=== PATIENT | female | born 1960 ===

== ENCOUNTER 2025-08-15 11:19 | Outpatient (OUT) | payer MEDICARE, SELFPAY ==
--- OUTSIDE RECORDS SUMMARY | 2022-07-26 09:15 | XMS_ITS | Continuity of Care Document ---
Author Organization [facility] Address [address] [place] [address] Phone Care Team Providers Care Alterations Tailor Name Role Phone Lewis Person Unavailable Unavailable Procedures Procedure Date Admin Moderna Bvalent Booster 17 And Old er Moderna COVID Vaccine Admin Dose 2 Moderna COVID-19 Vaccine Moderna COVID Vaccine Admin Dose 1 Moderna COVID-19 Vaccine Advance Directives Directive Yes / No Effective Date File Name No Information Encounters Encounter Description Practice Location Reason(s) For Visit Diagnoses Date Provider Providers Copied on Encounter [facility], [address] [place] [address], [id number], tel:[phone] COVID ECHD No Information Za Rogers. [address], [place], [id number], [place]. tel:[phone] [facility], [address] [place] [address], [id number], [place] tel:[phone] COVID ECHD No Information Za Rogers. [address], [place], [id number], [place]. tel:[phone] [facility], [address] [place] [address], [id number], [place] tel:[phone] COVID ECHD No Information Za Rogers. [address] [place] [address], [id number], [place]. tel:[phone] Family History Family Member Type Diagnosis Age At Onset No Information Immunizations Vaccine Date Status Comments Cov-19 administered Source: New Imm unization Record Kimo COVID administered Source: New Im munization Record Kimo COVID administered Source: New Im munization Record Payers Payer name Insurance type Covered democrat ID Authoriza timakeda(s) [place] [employer] [id number] [place] [employer] [id number] [place] [employer] [id number] [place] [employer] [id number] Social History Type Description Quantity Date Captured Comments Alcohol Use Details Unknown Caffeine Use Details Unknown Tobacco Use Status No Information Smoking Status No Information Sex Female Sexual Orientation Straight or heterosexual Gender Identity Male Chief Complaint And Reason For Visit No Information Reason For Referral Reason For Referral No Information Plan Of Treatment Date Type Action Status Goal FOBT. Due on due Goal PRAPARE ASSESSMENT. Due on S due Goal Influenza vaccine. Due on due Goal Lipid panel. Due on due Goal Zoster vaccine (). Due on due Goal Tdap. Due on due Goal Depression screening. Due on due Goal Colonoscopy. Due on due Goal Mammogram. Due on due History Of Present Illness Encounter Date Complaint History Of Prese nt Illness No Information Functional Status Date Functional Assessmen t No Information Instructions Date Instruction Additional Infor mation No Information Assessments Type Assessment Date No Information Patient Care Teams Name Effective Dates (start - stop) Status Members No Information
--- OUTSIDE RECORDS SUMMARY | 2024-09-30 09:00 | XMS_ITS ---
Author Organization [facility] Address [address] [place] [address] Care Team Providers Care Packager Head Name Role Phone Jaida Belle Primary Care Provider [phone] Marshall Sellers Unavailable [phone] REASON FOR VISIT BH F/U Encounters Encounter Location Date Provider Diagnosis [facility] [address] [place] [address] 09/30/2024 Marshall Sellers Plan Of Treatment No Information Progress Notes * DEMETRIUS KIM OB:1960 (64 yo F)Acc No.[id number]:09/30/2024 BH F/U - Patient Patient: Won DEMETRIUS ADAM Provider: STEF Mart :1960 A ge:64 Y S ex:Female Date:09/30/2024 [address] Pcp:Jaida Belle Subjective: * Chief Complaints: * 1 . BH F/U. Objective: Therapeutic Interventions: Assessment: Plan: * Images: Care Plan Details* * Electronic signature of BREEZY Portillo on 08/15/2025 at 11:26 AM EDT Sign off status: Pending * Provider: STEF Mart Date: 11/30/2023 Generated for Melinda eldridge/Martinez/Tete on: 0 08/15/2025 11:26 AM EDT
--- OUTSIDE RECORDS SUMMARY | 2025-08-10 12:48 | XMS_ITS | Continuity of Care Document ---
Author Organization [facility] Address [address] [place] [address] Phone Care Team Providers Care Vmware Architect Name Role Phone Neftali Washington DO Primary Care Provider [phone] Carlos Porras MD Attending Provider [phone] Carlos Porras MD Other Provider [phone] Desmond Barrera PA-C Emergency Provider Care Teams Patient Care Team Team Status: Active Member Role Status Dates Neftali Washington DO Primary Care Provider Active Visit Care Team Team Status: Inactive Member Role Status Dates Neftali Washington DO Primary Care Provider Active Start: June 10, 2025 End: June 10, 2025 Carlos Porras MD Attending Provider Active Sta rt: June 10, 2025 End: June 10, 2025 Visit Care Team Team Status: Active Member Role Status Dates Neftali Washington DO Primary Care Provider Active Start: June 22, 2025 Carlos Porras MD Attending Provider Active Sta rt: June 22, 2025 Carlos Porras MD Other Provider Active Start: June 22, 2025 Visit Care Team Team Status: Inactive Member Role Status Dates Neftali Washington DO Primary Care Provider Active Start: June 30, 2025 End: June 30, 2025 Carlos Porras MD Attending Provider Active Sta rt: June 30, 2025 End: June 30, 2025 Visit Care Team Team Status: Inactive Member Role Status Dates Desmond Barrera PA-C Emergency Provider Active Start: August 10, 2025 End: August 10, 2025 Neftali Washington Primary Care Provider Active Start: August 10, 2025 End: August 10, 2025 Chief Complaint and Reason for Visit Chief Complaint Admit Date leg pain June 10, 2025 11:5 2am Back Pain June 22, 2025 10: 33am FOLLOW UP AFTER LTR June 30, 2025 2: 43pm fall, left shoulder pain August 10, 2025 2:25pm Reason for Visit Admit Date Lumbosacral spondylosis June 10, 2025 11:52am Radiculopathy, lumbar region June 10, 2025 11:52am Sacroiliitis June 10, 2025 11:5 2am Chronic pain June 10, 2025 11:5 2am Lumbosacral spondylosis June 30 2:43pm Radiculopathy, lumbar region June 2:43pm Thoracic spondylosis June 30, 2025 2 :43pm Chronic pain June 30, 2025 2: 43pm Reason for Referral Referring Provider Name Referring Provider Address Referring Provider Phone Referral Date Requested Appointment Date Referral Reason Carlos Porras [address] [address] Work Phone: Please marisol l the office to schedule a follow up appointment if one hasn't been scheduled Allergies, Adverse Reactions, Alerts Allergen Type Severity Reaction Last Updated Verified Status lisinopril Allergy Unknown Swelling of Lip/Tongue/Throat, tongue swelled August 10, 2025 2:28pm Yes Active Social History Smoking Status Status Start Date End Date Date of Observa tion Ex-smoker (finding) Marquez matos 2024 4:24pm Observation Status Observation Response Date of Response Legal Sex Female (finding) Sex Assigned At Female August Family History Relationship Condition Age at Onset Recorded Date/T cherelle father Alzheimer's dementia Unknown Unknown Alzheimer's disease Unknown mother Congestive heart failure Unknown Heart disease Unknown brother Diabetes mellitus Unknown aunt Obesity Unknown brother Diabetes mellitus Unknown Unknown Obesity Unknown Problems Active Problems Medical Problem Onset Date Status Chronic lumbar radiculopathy Unknown Act yessica Mid back pain Unknown Active Thoracic spondylosis Unknown Active Radiculopathy, lumbar region Unknown Act yessica Sacroiliitis Unknown Active Lumbar canal stenosis Unknown Active Kyphoscoliosis Unknown Active Kyphoscoliosis deformity of spine Unknown Active Chronic low back pain Unknown Active Chronic pain Unknown Active Depression Unknown Active Fibromyalgia Unknown Active Hypercholesteremia Unknown Active Lumbosacral spondylosis Unknown Active HTN (hypertension) Unknown Active Spondylosis of lumbar spine Unknown Acti ve Closed posterior dislocation of left shoulder Un known Active Obesity (BMI 30-39.9) Unknown Active Medications Medication Status Dose Units Route Directions Qty Days St art Date Stop Date End Date Instructions Adherence Celecoxib (Celebrex) 100 mg capsule Discont inued 100 MG PO Daily 90 January 30, 2024 9:12am [facility] 2023 7:46a m Naltrexone 50 mg tablet Discont inued 0 .ROUTE .COMPLEX February 23, 2024 11:15a m Octob er 2023 11:47 am TAKE 1/2 TABLET BY MOUTH DAILY Triamterene -Hydrochlor othiazid 37.5-25 mg tablet Discont inued 1 TAB PO Daily 90 March 08, 2024 10:52a m March 08, 2024 11:06 am Amitriptyli ne 25 mg tablet Discont inued 25 MG PO every other day 45 March 08, 2024 10:52a m March 08, 2024 11:06 am Triamterene -Hydrochlor othiazid 37.5-25 mg tablet Discont inued 1 TAB PO Daily March 08, 2024 11:05a m Octob er 2023 7:45a m Amitriptyli ne 25 mg tablet Discont inued 25 MG PO every other day 45 March 08, 2024 11:05a m Octob er 2023 7:45a m take 1 tablet at bedtime orally every other day Bupropion Hcl (Wellbutrin Xl) 300 mg tablet extended release 24 hr Discont inued 300 MG PO Every morning May 13, 2024 7:59am February 14, 2025 8:14a m Amlodipine 10 mg tablet Discont inued 10 MG PO Daily 90 July 05, 2024 1:01pm March 30, 2025 11:06 am Pregabalin 150 mg capsule Discont inued 150 MG PO Three times daily 270 July 05, 2024 1:01pm [facility] 2024 11:19 am Tizanidine 4 mg tablet Discont inued 8 MG PO Three times daily 540 July 05, 2024 1:01pm Novem 2023 12:14 pm Celecoxib 100 mg capsule Discont inued 0 .ROUTE .COMPLEX 90 Septem meme 2023 7:46am Decem meme 2023 9:17a m TAKE 1 CAPSULE BY MOUTH DAILY Naltrexone 50 mg tablet Discont inued 0 .ROUTE .COMPLEX 45 Augobe r 2023 11:46a m February 21, 2025 12:36 pm TAKE 1/2 TABLET BY MOUTH DAILY Triamterene -Hydrochlor othiazid 37.5-25 mg tablet Discont inued 1 TAB PO Daily Augobe r 2023 7:44am March 03, 2025 7:59a m Amitriptyli ne 25 mg tablet Discont inued 25 MG PO every other day Augobe r 2023 7:44am March 03, 2025 7:59a m take 1 tablet at bedtime orally every other day Celecoxib 100 mg capsule Discont inued 0 .ROUTE .COMPLEX 90 Decemb er 2023 9:17am March 31, 2025 7:50a m TAKE 1 CAPSULE BY MOUTH DAILY Simvastatin 20 mg tablet Discont inued 20 MG PO Daily 2024 10:47a m May 31, 2025 10:07 am Tizanidine 4 mg tablet Discont inued 8 MG PO Three times daily 540 February 07, 2025 3:43pm May 19, 2025 12:15 pm Bupropion Hcl 300 mg tablet extended release 24 hr Active 0 .ROUTE .COMPLEX 90 February 14, 2025 8:14am TAKE 1 TABLET BY MOUTH EVERY MORNING Unknown Naltrexone 50 mg tablet Active 0 .ROUTE .COMPLEX 45 February 21, 2025 12:36p m TAKE 1/2 TABLET BY MOUTH DAILY Unknown Triamterene -Hydrochlor othiazid 37.5-25 mg tablet Active 0 .ROUTE .COMPLEX 90 March 03, 2025 7:59am TAKE 1 TABLET BY MOUTH DAILY Unknown Amitriptyli ne 25 mg tablet Active 0 .ROUTE .COMPLEX 45 March 03, 2025 7:59am TAKE 1 TABLET BY MOUTH AT BEDTIME EVERY OTHER DAY Unknown Amlodipine 10 mg tablet Active 10 MG PO Daily March 30, 2025 11:06a m Unknown Celecoxib 100 mg capsule Discont inued 0 .ROUTE .COMPLEX March 31, 2025 7:50am Septe mber 2024 7:45a m TAKE 1 CAPSULE BY MOUTH DAILY Tizanidine 4 mg tablet Active 8 MG PO Three times daily 540 May 19, 2025 12:15p m Unknown Simvastatin 20 mg tablet Active 20 MG PO Daily May 31, 2025 10:06a m Unknown Celecoxib 100 mg capsule Active 0 .ROUTE .COMPLEX 2024 7:45am TAKE 1 CAPSULE BY MOUTH DAILY Unknown Pregabalin 150 mg capsule Active 150 MG PO Three times daily 2024 11:18a m Unknown Hydrocodone -Acetaminop hen 5-325 mg tablet Active 1 TAB PO Q6H as needed for pain 12 3 2024 Unknown Calcium Citrate 1,040 mg Tablet Discont inued 1040 MG PO Daily January 29, 2023 12:00a m January 29, 2023 10:33 am Carvedilol 3.125 mg Tablet Discont inued 3.125 MG PO Twice daily January 29, 2023 12:00a m January 29, 2023 10:33 am must administer with a meal/food Oxycodone-A cetaminophe n 5-325 mg Tablet Discont inued 1 TAB PO Q8H as needed for Pain January 29, 2023 12:00a m January 29, 2023 10:34 am Trazodone 150 mg Tablet Discont inued 150 MG PO Daily at bedtime January 29, 2023 12:00a m January 29, 2023 10:34 am Nitroglycer in 0.4 mg Tablet, Sublingual Discont inued 0.4 MG SUBLIN GUAL Q5M as needed for Chest Pain January 29, 2023 12:00a m January 29, 2023 10:34 am do not exceed 3 doses per episode Pregabalin 50 mg Capsule Discont inued 50 MG PO Twice daily January 29, 2023 12:00a m January 29, 2023 10:34 am Vit C,E-Zn-Kelley r-Lutein-Ze axan (Preservisi on Areds-2) 250-90-40-1 mg Capsule Discont inued 1 TAB PO Twice daily January 29, 2023 12:00a m January 29, 2023 10:34 am Aspirin 81 mg Capsule Discont inued 81 MG PO Daily January 29, 2023 12:00a m January 29, 2023 10:33 am Multivitami n Tablet Active 1 TAB PO Daily January 29, 2023 12:00a m Unknown Sennosides (Senna) 8.6 mg Tablet Discont inued 8.6 MG PO Daily as needed for Constipatio n January 29, 2023 12:00a m April 15, 2024 1:15p m Ascorbic Acid (Vitamin C) (Vitamin C) 1,000 mg Tablet Active 1 GM PO Daily January 29, 2023 12:00a m Unknown Tizanidine 4 mg Tablet Discont inued 8 MG PO Three times daily January 29, 2023 12:00a m Augus 2023 1:02p m Naltrexone 50 mg Tablet Discont inued 25 MG PO Daily January 29, 2023 12:00a m February 19, 2024 10:01 am Aspirin (Aspir-81) 81 mg Tablet,Crista yed Release (Dr/Ec) Active 81 MG PO Daily January 29, 2023 12:00a m Unknown Amitriptyli ne 25 mg Tablet Discont inued 25 MG PO every other day January 29, 2023 12:00a m March 08, 2024 10:53 am Amlodipine 10 mg Tablet Discont inued 10 MG PO Daily January 29, 2023 12:00a m Augus 2023 1:02p m Simvastatin 20 mg Tablet Discont inued 20 MG PO Daily January 29, 2023 12:00a m Janua ry 2024 10:48 am Biotin 10,000 mcg Capsule Active 21147 MCG PO Twice daily January 29, 2023 12:00a m Unknown Triamterene -Hydrochlor othiazid 37.5-25 mg Tablet Discont inued 1 TAB PO Daily January 29, 2023 12:00a m March 08, 2024 10:52 am Omeprazole 20 mg Capsule,Del ayed Release(Dr/ Ec) Discont inued 20 MG PO Daily January 29, 2023 12:00a m April 15, 2024 1:15p m Celecoxib (Celebrex) 100 mg Capsule Discont inued 100 MG PO Daily January 29, 2023 12:00a m January 30, 2024 9:12a m Bupropion Hcl (Wellbutrin Xl) 300 mg Tablet Extended Release 24 Hr Discont inued 300 MG PO Every morning January 29, 2023 12:00a m May 13, 2024 7:59a m Pregabalin 150 mg Capsule Discont inued 150 MG PO Three times daily January 29, 2023 12:00a m Augus t 2023 1:02p m Acetaminoph en (Tylenol) 325 mg Capsule Active 325 MG PO Every 8 hours as needed for pain January 29, 2023 12:00a m Unknown Cholecalcif maria luz (Vitamin D3) (Vitamin D3) 50 mcg (2,000 unit) Capsule Active 50 MCG PO Daily January 29, 2023 12:00a m Unknown Magnesium Oxide 400 mg magnesium Tablet Discont inued 400 MG PO Daily January 29, 2023 12:00a m April 15, 2024 1:15p m Amoxicillin -Pot Clavulanate 875-125 mg tablet Discont inued 1 TAB PO Every 12 hours 20 March 30, 2024 12:00a m April 15, 2024 1:15p m Ondansetron 4 mg tablet,disi ntegrating Discont inued 4 MG PO Every 8 hours as needed for nausea and vomiting 9 March 30, 2024 12:00a m April 15, 2024 1:15p m Tizanidine 4 mg tablet Discont inued 8 MG PO Three times daily 540 90 Novemb 2023 12:14p m February 07, 2025 3:44p m Mecobalamin (Vitamin B12) 500 mcg tablet,chew able Active 500 MCG PO Daily January 29, 2024 12:00a m Unknown Naltrexone 50 mg tablet Discont inued 50 MG PO Daily 45 90 February 19, 2024 10:00a m February 19, 2024 11:26 am 1/2 tablet orally once a day Naltrexone 50 mg tablet Discont inued 50 MG PO Daily 45 90 February 19, 2024 11:26a m February 23, 2024 11:15 am 1/2 tablet orally once a day Immunizations Immunization Event Date Not Given Reason Dose Number Tearer Press Clipping Lot Number Vaccine Information Statement (VIS) Detail Administration Location COVID-19 mRNA-1273 (Moderna) October 30, 2021 COVID-19 mRNA-1273 (Moderna) February 07, 2021 COVID-19 mRNA-1273 (Moderna) March 07, 2021 COVID-19 mRNA Bivalent Booster (Moderna) July 26, 2022 COVID-19 (PFIZER) 12Y and older November 01, 2024 Fluzone TIV High-Dose 65YR+ November 01, 2024 Pneumococcal Conjugate Vaccine, 20 valent December 07, 2024 Quadrivalent Influenza September 27, 2020 Quadrivalent Influenza September 28, 2021 Quadrivalent Influenza September 16, 2022 Quadrivalent Influenza October 16, 2023 RSV, bv, preFa and preFb, pf December 07, 2024 Procedures Procedure Date Performed Status XR shoulder LT min 2V* August 10, 2025 2:32 pm completed XR shoulder LT min 2V* August 10, 2025 3:48 pm completed Relevant Diagnostic Tests and/or Laboratory Data Diagnostic Imaging Reports Author Darin Gotti [facility] Report Date/Time August 10, 2025 3:12pm [facility] [place] [address] XRay Report Signed Patient: Martha Gonzalez MR#: [id number] : 1960 Acct:[id number] Age/Sex: 64 / F ADM Date: 5 Loc: ER Room: Type: PRE ER Attending Dr: Copies to: Desmond Barrera PA-C~ Ordering Provider: Desmond Barrera PA-C Date of Service: 08/10/25 XR/XR shoulder LT min 2V*: Extremity Injury, Upper LEFT SHOULDER - - 2 views CLINICAL HISTORY: Fall with deformity. COMPARISON: None FINDINGS: Suboptimal examination due to positioning. There appears to be posterior dislocation of the glenohumeral joint. No definitive fracture line is seen. ACjoint demonstrates mild degenerative change. XR/XR shoulder LT min 2V* IMPRESSION: POSTERIOR DISLOCATION OF THE GLENOHUMERAL JOINT. NO DEFINITIVE FRACTURE IS SEEN. Impression dictated by: Darin Gotti Jr., D.O. 08/10/2025 3:12 PM Dictation Location: RADIO--22 Transcribed By: BRITANY 08/10/25 151 Dictated By: Darin Gotti Jr, DO 08/10/25 151 Signed By: <Electronically signed by Darin Gotti Jr, DO in OV> 08/10/25 151 Author Neal Gonzalez [facility] Report Date/Time August 10, 2025 4:27pm [facility] [place] [address] XRay Report Signed Patient: Martha Gonzalez MR#: [id number] : 1960 Acct:[id number] Age/Sex: 64 / F ADM Date: 5 Loc: ER Room: Type: [facility] ER Attending Dr: Copies to: Desmond Barrera PA-C~ Ordering Provider: Desmond Barrera PA-C Date of Service: 08/10/25 XR/XR shoulder LT min 2V*: Extremity Injury, Upper 2 views left shoulder INDICATION: Postreduction Comparison 08/10/2025 XR/XR shoulder LT min 2V* Findings/impression: Interval reduction previous noted posterior shoulder dislocation. No definite acute displaced fracture. Impression dictated by: Neal Gonzalez M.D. 08/10/2025 4:27 PM Dictation Location: [facility]-29 Transcribed By: BRITANY 08/10/251626 Dictated By: Neal Gonzalez MD 08/10/251624 Signed By: <Electronically signed by Neal Gonzalez MD in OV> 08/10/25 162 Vital Signs Vital Reading Result Reference Range Collection Date/Time Heart Rate 52 /min 60-100 June 10, 2025 12:16pm Oxygen saturation by Pulse oximetry 96 % 95-100 June 10, 2025 12:1 6pm BP Systolic 130 mm[Hg] 100-140 June 10, 2025 12:16pm BP Diastolic 80 mm[Hg] 60-100 June 10, 2025 12:16pm Height 63 [in_i] June 22 11:15am Weight 72.12 kg June 22 11:15am Heart Rate 59 /min 60-100 June 22 11:45am Respiratory rate 16 /min -June 22, 2025 11:45am Oxygen saturation by Pulse oximetry 97 % 95-100 June 22, 2025 11: 45am BP Systolic 107 mm[Hg] 100-140 June 22 11:45am BP Diastolic 63 mm[Hg] 60-100 June 22 11:45am Heart Rate 57 /min 60-100 June 30 2:48pm Oxygen saturation by Pulse oximetry 96 % 95-100 June 30, 2025 2: 48pm BP Systolic 110 mm[Hg] 100-140 June 30 2:48pm BP Diastolic 70 mm[Hg] 60-100 June 30 2:48pm Height 63 [in_i] August 10, 2025 2:29pm Weight 78.00 kg August 10, 2025 2:29pm Body Temperature 97.8 [degF] 97.6-99.0 July 192024 2:29pm Heart Rate 53 /min 60-100 August 10, 2025 4:35pm Respiratory rate 16 /min -July 192024 4:35pm Oxygen saturation by Pulse oximetry 100 % 95-100 August 10, 2025 4:35pm BP Systolic 140 mm[Hg] 100-140 August 10, 2025 4:35pm BP Diastolic 68 mm[Hg] 60-100 August 10, 2025 4:35pm Inhaled oxygen flow rate 2 L/min Jul 4:10pm Advance Directives Advance Directive Response Recorded Date/ Time Advance Directives No November 24, 2017 4:28pm Insurance Providers Guarantor Martha Matos [facility] Address [address] [place] [id number] Contact Info. Home Phone: Payer Policy Id Subscriber's Name Subscriber Id Effectiv e Date Expiration Date MMO [id number] Martha reddy Rothraúl [id number] Encounters Encounter Location(s) Arrival/Admit Date Discharge/Depart Date Provider(s) Departed Physician/Prov ider Office Visit -[facility] Pain [facility] [place] June 10, 2025 11:52am June 10, 2025 12:48pm Carlos Porras MD Non-patient / Non-visit -[facility] Pain [facility] June 22, 2025 10:33am Carlos Porras MD Departed Physician/Prov ider Office Visit -[facility] Pain [facility] June 30, 2025 2:43pm June 30, 2025 3:02pm Carlos Porras MD Departed Emergency -Emergency Room August 10, 2025 2:25pm August 10, 2025 4:42pm Recent Diagnosis Onset Date Admit Date Lumbosacral spondylosis Unknown May 11:52am Radiculopathy, lumbar region Unknown May 11:52am Sacroiliitis Unknown June 10, 2025 11:52am Chronic pain Unknown June 10, 2025 11:52am Lumbosacral spondylosis Unknown June 172024 2:43pm Radiculopathy, lumbar region Unknown Jun ust 2024 2:43pm Thoracic spondylosis Unknown June 2:43pm Chronic pain Unknown June 30 2:43pm Assessments Diagnosis Onset Date Resolution Status Admit Date Lumbosacral spondylosis acute J linette2024 11:52am Radiculopathy, lumbar region acute June 10, 2025 11:52am Sacroiliitis acute June 10, 025 11:52am Chronic pain chronic June 10 025 11:52am Lumbosacral spondylosis acute A ugust 2024 2:43pm Radiculopathy, lumbar region acute June 30, 2025 2:43pm Thoracic spondylosis acute Augu st 2024 2:43pm Chronic pain chronic June 30, 2025 2:43pm Plan of Treatment Author Sarah [facility] Authored June 10, 2025 12:4 6pm Continue with current treatm ent plan. If pain persists or worsens, we can consider proceeding with SI joint injections in the future, if applicable. Follow up after procedure. 64 year old female here for follow up to discuss chronic pain. She was last seen 5 months ago. She voices complaints of low back pain with radiation into the groin bilaterally and down the anterior aspect of the left lower extremity to the toes. She states her pain started last week with no known inciting trauma and feels pain is negatively impacting her daily activities and sleeping pattern. Pertinent imaging of the lumbar spine were reviewed and discussed in detail with the patient which showed moderate to severe narrowing around the nerve roots in the lower lumbar spine. Anatomy of spine as well as other treatment options were discussed in detail with the patient in regards to patients condition. I recommend we proceed with a left L3-4 and L4-5 transforaminal epidural steroid injection under fluoroscopic guidance. Risks and benefits of procedure explained to patient; patient verbalizes understanding. Author Maria C Ibarra [facility] Authored June 30, 2025 3: 03pm 64 year old female here for follow up status post left L3-4 and L4-5 transforaminal epidural steroid injection under fluoroscopic guidance. Patient reports 70-80% relief of left lower extremity pain following the procedure. She voices complaints of low back pain worse on the right along with intermittent radiation down the lateral aspect of the left lower extremity to the foot. She feels pain is manageable at this time. Anatomy of spine discussed in detail with patient in regards to patients condition. Overall, she appears to be doing very well and does not require further treatment at this time. I recommend she increase her activities as tolerated. She is counseled against any excessive bending or twisting. She is encouraged to call the office if her symptoms return Stable. Patient denies lumbar pain today Patient is encouraged to call the office if her symptoms return If her pain persists or worsens, we can consider proceeding with a thoracic facet MBB followed by a RFA if applicable under fluoroscopic guidance. In the meantime, I recommend the patient try using an electrotherapy device as a therapeutic treatment and I will send a prescription for a TENS unit. Patient is encouraged to wear the TENS unit as needed to provide extended pain relief, control breakthrough pain and relax muscle spasms. Steps and instructions for obtaining the device were handed to the patient Future Tests Future scheduled test information is unavailable Pending Tests Pending diagnostic test information is unavailable Future Visits Future appointment information is unavailable Referrals to Other Providers Reason for Referral Referral Start Date Provider Provider Contact Information Provider Address Please call the office to schedule a follow up appointment if one hasn't been scheduled Carlos Porras MD Work Phone: [address] [address] Neftali Washington , Work Phone: [phone] [facility] [phone] Won Shipley MD Work Phone: [phone] [facility] [address] Future Procedures Procedure Name Ordered Date Scheduled Date Discharge Order June 22, 2025 12:50pm June 22, 2025 12:50pm Future Medications Future medication information is unavailable Patient Instructions Instruction Admit Date Know your Meds Chiquita Non Diagnostic Block June 22, 2025 10:33am Shoulder Dislocation August 10 2:25pm
--- NOTE | 2025-08-15 | XR_ITS ---
The [address] [address] Patient Name: DEMETRIUS UREÑA MRN: [id number] date: 1960 Sex: F Assigned Patient Location: [facility] Current Patient Location: Accession/Order Number: [id number] Exam Date: 08/15/2025 11:50 Report Date: 08/16/2025 08:52 At the request of: JORGE A VENUTRA DO Procedure: XR shoulder LT min 2V LEFT SHOULDER - 3 views CLINICAL HISTORY: Left shoulder pain for the past 4 days. History of fall and recent shoulder dislocation. COMPARISON: None AP, Y and Grashey views were obtained. There is no evidence of fracture or dislocation. On the AP view, there is borderline widening of the AC joint and coracoclavicular distance . Correlation is suggested as to the possibility of AC joint separation. There is minimal degenerative change at greater tuberosity. There are no significant soft tissue abnormalities. XR/XR shoulder LT min 2V IMPRESSION: NO ACUTE BONY INJURY. QUESTION OF AC JOINT SEPARATION. Impression dictated by: Marichuy Gordon M.D. 08/16/2025 8:52 AM Dictation Location: [place] [address] Electronically authenticated by: [id number] Y Date: 08/16/2025 08:52
--- OUTSIDE RECORDS SUMMARY | 2025-08-15 11:27 | XMS_ITS | Clinical Summary ---
Author Organization [facility] Address [address] [place] [address] Care Team Providers Care Director Presales Name Role Phone Neftali [place] MD Primary Care Provider [phone] Allergies No known active allergies Medications amitriptyline (Elavil) 25 MG tablet 4 Active amLODIPine (Norvasc) 10 MG tablet 4 Active buPROPion XL (Wellbutrin XL) 300 MG 24 hr tablet 4 Active naltrexone (Depade) 50 MG tablet 4 Active simvastatin (Zocor) 20 MG tablet 4 Active triamterene-hydroc hlorothiazide (Maxzide-25) 37.5-25 MG tablet 4 Active pregabalin (Lyrica) 150 MG capsuleIndications :Lumbar spondylolysis Take 1 capsule (150 mg) by mouth in the morning and 1 capsule (150 mg) in the evening and 1 capsule (150 mg) before bedtime. Due now. 270 capsule 2 4 Active Active Problems Problem Noted Date Diagnosed Date Radicular pain 03/17/2024 Back pain 03/17/2024 Paresthesia 03/17/2024 Spondylosis 03/17/2024 Lumbar radiculopathy 03/17/2024 DDD (degenerative disc disease), lumbar 03/17/20 Facet arthritis of lumbar region 03/17/2024 Fibromyalgia 03/17/2024 Spinal stenosis 03/17/2024 Family History Medical History Relation Name Comments Diabetes Other Heart disease Other Relation Name Status Comments Other Social History Tobacco Use Types Packs/Day Years Used Date Smoking Tobacco: Never Smokeless Tobacco: Never Alcohol Use Standard Drinks/Week Comments Never 0 (1 standard drink = 0.6 oz pur e alcohol) Comments Unknown Sex and Gender Information Value Date Recorded Sex Assigned at Not on file Legal Sex Female 6:45 PM EDT Gender Identity Not on file Sexual Orientation Not on file Last Filed Vital Signs Vital Sign Reading Time Taken Comments Blood Pressure 130/82 01/18/2025 1:20 PM EST Pulse 67 01/18/2025 1:20 PM EST Temperature - - Respiratory Rate 16 01/18/2025 1:20 PM EST Oxygen Saturation 99% 01/18/2025 1:20 PM EST Inhaled Oxygen Concentration - - Weight 75.8 kg (167 lb) 01/18/2025 1:20 PM EST Height 160 cm (5' 3 ) 01/18/2025 1:20 PM EST Body Mass Index 29.58 01/18/2025 1:20 PM EST Plan of Treatment Health Maintenance Due Date Last Done Comments CT Colonography 1959 Colonoscopy 1959 FIT 1959 FOBT 1959 Sigmoidoscopy 1959 Pap Smear 1980 Cervical Cancer Screening 1989 HPV/Cotest 1989 Mammogram 04/15/2024 04/15/2023 Influenza Vaccine (#1) 2025 , 10/16/2023, 09/16/2022, Additional history exists Colorectal Cancer Screening 11/25/2026 FIT-DNA 11/25/2026 11/25/2023, 10/16/2020 Pneumococcal Vaccine: 65+ Years Completed 5 Procedures Procedure Name Priority Date/Time Associated Diagnosis Comments BI MAMMOGRAM SCREENING TOMOSYNTHESIS BILATERAL Routine 04/15/2023 2:09 PM EDT Encounter for screening mammogram for malignant neoplasm of breast from Last 3 Months or Most Recently Relevant to Health Maintenance Results * Bilateral screening mammogram with tomosynthesis (04/15/2023 2:09 PM EDT) Anatomical Region Laterality Modality Breast Bilateral Mammography 04/23/2023 4:40 PM EDT Impressions 04/23/2023 5:18 PM EDT BIRADS 1 - Negative Follow-up: 12-month Density: Scattered tissue. CAD analysis was performed and used in the interpretation. Board Certified Radiologists. Accredited by the ACR and FDA. MAMMOGRAPHY IS VERY IMPORTANT TO YOUR HEALTH. THE CURRENT [employer] GUIDELINES RECOMMENDS ANNUAL MAMMOGRAPHY BEGINNING AT AGE 40. THIS FACILITY UTILIZES A REMINDER SYSTEM TO ENSURE ALL PATIENTS RECEIVE REMINDER NOTIFICATIONS AT THE APPROPRIATE TIME BASED ON THE RECOMMENDATIONS OF THIS EXAM. ELECTRONICALLY SIGNED BY: MD Andreina Arreola 04/23/2023 5:18 PM EDT EXAM: BI MAMMOGRAM SCREENING TOMOSYNTHESIS BILATERAL DATE: 04/15/2023 1:59 PM CLINICAL HISTORY: yearly. COMPARISONS: 12/21/2019 and 12/09/2018. TECHNIQUE: Routine full-field digital mammograms and 3D breast tomosynthesis of both breasts were obtained. FINDINGS: There are no developing masses, suspicious microcalcifications, or areas of architectural distortion identified on the current study. No significant changes are identified from the prior studies, given differences in technique and positioning. Neftali [place] MD IMG BI PROCEDURES Final Result from Last 3 Months or Most Recently Relevant to Health Maintenance Insurance [employer] Care Teams Director Presales Relationship Specialty Start Date End Date Neftali Washington MD PCP - General Family Medicine 04/03/23
--- OUTSIDE RECORDS SUMMARY | 2025-08-15 11:27 | XMS_ITS | Patient Health Record ---
Author Organization [facility] Address [address] [place] [address] Care Team Providers Care Carpenters Name Role Phone [facility] Primary Care Provide r Unavailable Jelena Garcia Unavailable Reason For Referral No Information Immunizations Vaccine Route Administration Date Status Comme nts z2024 Fluzone, HIGH DOSE, PFS (0.5mL Admin) IM Intramuscular 11/01/2024 Administered zPfizer Covid19 Comirnaty (12yr and up) Mccurtain (0.3mL) IM Intramuscular 11/01/2024 Administered Encounters Encounter Location Date Provider Diagnosis [address] [place] [address] 11/01/2024 Jelena Flower Encounter for immunization Z23 Assessments Encounter Date Diagnosis (ICD Code) Assessment Notes Treatment Notes Treatment Clinical Notes Section Notes 11/01/2024 Encounter for immunization (ICD-10 - Z23) Medical Necessity: Seasonal Influenza Vaccine Seasonal Covid Vaccine VIS given and discussed, no concerns voiced; Pt instructed to stay in the clinic area for 15-30 minutes after the injection. See scanned Vaccine Administration Consent Form 11/01/2024 Other VIS given and discussed, no concerns voiced; Pt instructed to stay in the clinic area for 20 minutes after the injection. Plan Of Treatment No Information Insurance Providers Payer Name Payer Address Payer Phone Subscriber Number Group Number Insured Name Patient Relationship to Insured Coverage Start Date Coverage End Date [employer] [address] [address] [place] [phone] [id number] Martha Jeffries Self - patient is the insured
--- OUTSIDE RECORDS SUMMARY | 2025-08-15 11:27 | XMS_ITS | Patient Health Record ---
Author Organization [facility] Address [address] [place] [address] Care Team Providers Care Firer Powerhouse Name Role Phone Jaida Belle Primary Care Provider Marshall Sellers Unavailable Reason For Referral No Information Problems Problem Type SNOMED Code ICD Code Onset Dates Problem Status W/U Status Risk Notes Problem Mixed anxiety and depressive disorder (288732204) Depression with anxiety (F41.8) Active confirmed Encounters Encounter Location Date Provider Diagnosis [facility] [address] [place] [address] 08/26/2024 Marshall Sellers Depression with anxiety F41.8 [facility] [address] [place] [address] 09/16/2024 Marshall Sellers Depression with anxiety F41.8 Assessments Encounter Date Diagnosis (ICD Code) Assessment Notes Treatment Notes Treatment Clinical Notes Section Notes 08/26/2024 Depression with anxiety (ICD-10 - F41.8) 09/16/2024 Depression with anxiety (ICD-10 - F41.8) Plan Of Treatment No Information Insurance Providers Payer Name Payer Address Payer Phone Subscriber Number Group Number Insured Name Patient Relationship to Insured Coverage Start Date Coverage End Date [employer] [address] [address] [place] [phone] [id number] KIM Self - patient is the insured
== END 2025-08-15 11:20 | disposition home or self-care (01) ==
LOC: RAD 11:24
PROVIDERS: Visit Provider Orthopaedic Surgery Orthopaedic Trauma
DX: S43.025A Posterior dislocation of left humerus, initial encounter (principal)
CPT/HCPCS: 73030